=== PATIENT | female | born 2005 | race Hispanic/Latino ===

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

== ENCOUNTER 2025-01-27 21:02 | Emergency (ER) | payer BC ==
[~2025-01-27] VITALS: Ht 165.1 cm; Wt 54.4 kg
--- NOTE | 2025-01-27 21:27 | ERN ---
ED Note History of Present Illness Stated Complaint: VAGINAL BLEEDING Chief Complaint: Vaginal Bleeding Time Seen by MD: 21:06 Time Seen by Midlevel: 21:06 Dictation: The patient is a 19-year-old female with no significant past medical history who presents to the emergency department with complaints of lower abdominal pain onset yesterday and brown spotting onset today. Patient reports she is about [address] Zamarripa. G2 A1. Patient denies any fevers. Allergies: Coded Allergies: No Known Drug Allergies (Unverified Allergy, Unknown, 05/24/23) Past Medical History Past Medical History: No Pertinent History Surgical History: None LMP: October 15, 2024 : 2 Aborts: 1 RN Note Reviewed/Agreed w/PFSH: Yes Review of System Dictation Constitutional: Negative for fever,chills, and weight loss Eyes: Negative for injury, pain,redness, and discharge ENT: Negative for injury,pain or swelling Cardiovascular: Negative for chest pain, palpitations, and edema Respiratory: Negative for shortness of breath, cough, and wheezing, Abdomen/GI: Negative for nausea, vomiting, diarrhea, and constipation positive for abdominal pain Back: Negative for injury and pain : Negative for injurypossible for vaginal bleeding MS/Extremity: Negative for injury and deformity Skin: Negative for rash, and discoloration Neuro: Negative for headache, weakness, numbness, tingling, and seizure Psych: Negative for suicide ideation, homicidal ideation, and hallucinations Initial Vital Sign VS Vital Signs Date Time Temp Pulse Resp B/P (MAP) Pulse Ox O2 Delivery O2 Flow Rate FiO2 01/27/25 21:03 98.1 77 18 128/90 100 Room Air 01/27/25 22:18 0 21 Physical Exam Dictation Vital Signs reviewed General Appearance: Alert, oriented x 3, no acute distress, well developed, nourished. Head and Face: non-traumatic. Eyes: PERRL, pink conjunctivas, eyelid no trauma, anterior chamber with arcus senilis. Ears: Pinnas intact and no signs of trauma or erythema ear canals clear and no discharge TM no erythema Nose: No discharge, no bleeding. Oropharynx: Mouth normal, tongue pink. pharynx clear,no erythema, tonsils no exudates, no abscesses noted, mucous membrane moist Neck: Supple, non-tender, no thyromegaly, no masses, no JVD, no bruits Breast:Deferred Chest:No tenderness, no crepitus, no paradoxical movement, no retractions Lungs:Clear, well-ventilated, symmetric, no rales, no wheezing, no rhonchi, no stridor, good breath sounds bilaterally Heart: Regular rate, regular rhythm, no murmur, no gallops Vascular: no peripheral edema, Abdomen: Soft, positive bowel sounds, nondistended, no guarding, nontender, no rebound, no masses no hepatomegaly, no splenomegaly, no Neil's sign, no hernias. Rectal: Deferred Genital: Deferred Neurological: Normal speech, motor function intact, sensory function intact Musculoskeletal: Neck nontender, full range of motion, back nontender, full range of motion, Extremities: nontender, full range of motion Skin: Color pink, dry, no turgor, no rash, no lacerations, no abrasions, no contusions. Lymphatic: Deferred Results (Laboratory/Radiology) Laboratory/Radiology Laboratory Tests Test 01/27/25 21:34 01/27/25 22:03 White Blood Count 10.0 K/uL (4.8-10.8) Red Blood Count 3.57 MIL/uL (4.00-5.50) L Hemoglobin 11.0 g/dL (12.0-16.0) L Hematocrit 31.1 % (36-48) L Mean Corpuscular Volume 87.1 fL (80-100) Mean Corpuscular Hemoglobin 30.8 pg (27.0-33.0) Mean Corpuscular Hemoglobin Concent 35.4 g/dL (32.0-36.0) Red Cell Distribution Width 13.0 % (11.0-15.5) Platelet Count 283 K/uL (130-400) Mean Platelet Volume 10.1 fL (7.5-10.5) Immature Granulocyte % (Auto) 0.4 % (0-1) Neutrophils (%) (Auto) 75.5 % (40.0-77.0) Lymphocytes (%) (Auto) 19.1 % (21.0-51.0) L Monocytes (%) (Auto) 4.5 % (3.0-13.0) Eosinophils (%) (Auto) 0.2 % (0.0-8.0) Basophils (%) (Auto) 0.3 % (0.0-5.0) Neutrophils # (Auto) 7.6 K/uL (1.8-7.7) Lymphocytes # (Auto) 1.9 K/uL (1.0-4.8) Monocytes # (Auto) 0.5 K/uL (0.1-1.0) Eosinophils # (Auto) 0.02 K/uL (0.00-0.70) Basophils # (Auto) 0.03 K/uL (0.00-0.20) Absolute Immature Granulocyte (auto 0.04 K/uL (0-1) Nucleated Red Blood Cells 0.0 % (0.0-0.19) Sodium Level 137 mmol/L (136-145) Potassium Level 3.6 mmol/L (3.5-5.1) Chloride Level 103 mmol/L (101-111) Carbon Dioxide Level 26 mmol/L (21-32) Blood Urea Nitrogen 6 mg/dL (7-18) L Creatinine 0.5 mg/dL (0.5-1.0) Glomerular Filtration Rate Calc 138 mL/min (>90) Random Glucose 86 mg/dL (70-105) Total Calcium 8.8 mg/dL (8.5-10.1) Human Chorionic Gonadotropin, Quant 35032 mIU/mL (0-5) H Urine Color LIGHT-YELLOW (YELLOW) Urine Appearance CLEAR (CLEAR) Urine pH 6.5 (5.0-8.0) Urine Specific [place] 1.010 (1.001-1.031) Urine Protein NEGATIVE mg/dL (NEGATIVE) Urine Glucose (UA) NEGATIVE mg/dL (NEGATIVE) Urine Ketones 20 mg/dL (NEGATIVE) H Urine Occult Blood NEGATIVE (NEGATIVE) Urine Nitrate NEGATIVE (NEGATIVE) Urine Bilirubin NEGATIVE mg/dL (NEGATIVE) Urine Urobilinogen 0.2 mg/dL (0.2-1.0) Urine Leukocyte Esterase NEGATIVE Isidoro/uL Urine RBC 0-1 /HPF (0-1) Urine WBC 2-5 /HPF (0-1) H Urine Squamous Epithelial Cells RARE /HPF (0-2) Urine Bacteria RARE /HPF (None Seen) REASON: VAGINAL BLEEDING ORDERING PHYSICIAN: CHRISTINE ESPARZA PROCEDURE: OB >14 - US OB >14 WEEKS EXAMINATION: COMPLETE TRANSABDOMINAL OBSTETRIC ULTRASOUND. CLINICAL INDICATION: vaginal bleeding. COMPARISON: None provided. TECHNIQUE: Grayscale ultrasonography of lower abdomen and pelvis. FINDINGS: LMP: 10/15/2024 A single, live, intrauterine fetus is seen in breech presentation. Estimated date of delivery as per the ultrasound done today is 07/17/2025 corresponding to a gestational age of 15 weeks 4 days. The placenta is posterior, grade 0 maturity. The lower limit of posterior placenta is 1.7 cm away from cervix. No placenta previa. Cervix is closed, measures 2.5 cm. Heart rate is 145 beats per minute. weight is 120 +/-18 g. The parameters are as following: Biparietal diameter: 3.25 cm (EGA - 16 weeks, 1 day). Head circumference: 11.91 cm (EGA - 15 weeks, 6 days). Femoral length: 1.72 cm (EGA - 15 weeks, 0 days). Abdominal circumference: 9.13 cm (EGA - 15 weeks, 3 days). HC /AC ratio: 1.30 FL/AC ratio: 18.84 Cephalic index: 78%. Estimated gestational age: 15 Weeks 4 Days. EDC (by LMP): 07/22/2025 EDC (by measurement): 07/17/2025 parts including the four-chamber heart, spine, stomach, kidneys, urinary bladder, three-vessel umbilical cord, cord insertion, cisterna magna, lateral ventricles, choroid plexus and cerebellum appear normal. Amniotic fluid is normal for the period of gestation. The amniotic fluid index is: 10.5 cm. The umbilical cord is three-vesseled and is normal. IMPRESSION: Single live intrauterine with corresponding gestational age of 15 weeks and 4 days with breech presentation at the time of this scan and with no obvious anatomical abnormality. /[facility] Labs Reviewed?: Yes ED Course ED Course Orders Procedure Category Date Status Time Cbc With Differential LAB 01/27/25 Complete 21:17 Hcg,Quantitative LAB 01/27/25 Complete 21:17 Us Ob >14 Weeks US 01/27/25 Resulted 21:17 0.9%Nacl 1000ml (Ns PHA 01/27/25 Complete 1000ml) 21:30 Basic Metabolic Panel LAB 01/27/25 Complete 21:17 Acetaminophen 500mg PHA 01/27/25 Complete Tab (Tylenol 500mg T 21:30 Urinalysis Profile LAB 01/27/25 Complete 21:17 Type And Screen BBK 01/27/25 Complete 21:30 Current Medications Medications (Trade) Dose Ordered Sig/Naeem Route PRN Reason Start Time Stop Time Status Last Admin Dose Admin Acetaminophen (TYLenol 500MG TAB) 1,000 mg ONCE ONCE PO 01/27/25 21:30 01/27/25 21:31 DC 01/27/25 21:51 Sodium Chloride 1,000 ml @ 0 mls/hr ONCE ONCE IV 01/27/25 21:30 01/27/25 21:31 DC 01/27/25 22:06 Vital Signs Date Time Temp Pulse Resp B/P (MAP) Pulse Ox O2 Delivery O2 Flow Rate FiO2 01/27/25 22:18 98.2 76 18 122/72 98 Room Air* 0 21 01/27/25 21:03 98.1 77 18 128/90 100 Room Air Medical Decision Making MDM The patient is a 19-year-old female with no significant past medical history who presents to the emergency department with complaints of lower abdominal pain onset yesterday and brown spotting onset today. Patient reports she is about [address] Zamarripa. G2 A1. Patient denies any fevers. CBC showed no leukocytosis, mild normocytic anemia, chemistry showed no electrolyte imbalance, urinalysis unremarkable, ultrasound revealed a intrauterine of 15 weeks. heart rate of 145 On physical exam patient is in no acute distress, nontoxic appearance, stable vital signs. Patient with a only brown spotting, no active bleeding. Patient will be discharged to follow up with OBGYN. Differential diagnosis: During , UTI, subchorionic hemorrhage Need for hospitalization: Patient does not meet criteria for hospitalization. There are no social concerns with this patient. DX & DISP Disposition: Discharge Departure Impression: Primary Impression: 15 weeks gestation of Condition: Stable Additional Instructions: Please follow up with your OBGYN as soon as possible. If anything changes pl ease return to ER. FOLLOW-UP WITH PRIMARY CARE PROVIDER IN 1 TO 2 DAYS. OKAY TO CONTINUE HOME MEDICATIONS UNLESS OTHERWISE DISCUSSED DURING YOUR VISIT IN THE EMERGENCY ROOM TODAY. RETURN TO YOUR NEAREST EMERGENCY ROOM IF SYMPTOMS WORSEN OR IF THERE IS NO IMPROVEMENT. CALL 911 IF YOU NEED IMMEDIATE ASSISTANCE. TAKE TYLENOL [id number] NEEDED AND IF NO CONTRAINDICATIONS ARE PRESENT. INCREASE ORAL HYDRATION. A WOUND CULTURE OR URINE CULTURE WAS ORDERED HERE IN THE EMERGENCY ROOM DEPARTMENT PLEASE FOLLOW-UP WITH PRIMARY CARE PROVIDER AND ADVISE THEM TO GET REPEAT PORTS FROM OUR FACILITY. IF YOU HAD ANY SCOT WRAP/SPLINTS THAT WERE APPLIED HERE, PLEASE DO NOT REMOVE THEM UNTIL YOU SEE YOUR PRIMARY CARE OR SPECIALTY. Referrals: BECKY QUEZADA (PCP) Time of Disposition: 23:06 I have reviewed the case, and I agree with, Diagnosis and Plan CHRISTINE ESPARZA BUILDING CUSTODIAN Jan 27, 2025 21:27
[2025-01-27 21:40] LABS: IMMATURE GRANULOCYTE ABSOLUTE 0.04 K/uL (0-1); NUCLEATED RED BLOOD CELLS 0.0 % (0.0-0.19); PLATELET COUNT (AUTO) 283 K/uL (130-400); RED BLOOD CELL COUNT(AUTO) 3.57 MIL/uL (4.00-5.50); RED CELL DISTRIBUTION WIDTH 13.0 % (11.0-15.5); WHITE BLOOD COUNT (AUTO) 10.0 K/uL (4.8-10.8)
[2025-01-27 21:50] LABS: CREATININE 0.5 mg/dL (0.5-1.0); GLOMERULAR FILTR. RATE CALC 138.0 mL/min (>90); GLUCOSE,RANDOM 86.0 mg/dL (70-105); SODIUM SERUM 137.0 mmol/L (136-145); UREA NITROGEN, BLOOD 6.0 mg/dL (7-18)
[2025-01-27] MEDS: 0.9%NACL 1000ML 1,000 ML IV ONE (22:06)
[2025-01-27 22:15] LABS: APPEARANCE,URINE CLEAR (CLEAR); GLUCOSE, URINE (UA) NEGATIVE (NEGATIVE); LEUKOCYTE ESTERASE ,URINE NEGATIVE Leu/uL (NEGATIVE); NITRATE,URINE NEGATIVE (NEGATIVE); OCCULT BLOOD,URINE NEGATIVE (NEGATIVE)
[2025-01-27 22:16] LABS: HCG,QUANTITATIVE 42025.0 mIU/mL (0-5)
[2025-01-27 22:16] LABS: ADD UA MICROSCOPIC YES
[2025-01-27 22:17] LABS: SQUAMOUS EPITHELIAL CELL,UR RARE /HPF (0-2)
--- NOTE | 2025-01-27 22:43 | HMCIMG ---
EXAMINATION: COMPLETE TRANSABDOMINAL OBSTETRIC ULTRASOUND. CLINICAL INDICATION: vaginal bleeding. COMPARISON: None provided. TECHNIQUE: Grayscale ultrasonography of lower abdomen and pelvis. FINDINGS: LMP: 10/15/2024 A single, live, intrauterine fetus is seen in breech presentation. Estimated date of delivery as per the ultrasound done today is 07/17/2025 corresponding to a gestational age of 15 weeks 4 days. The placenta is posterior, grade 0 maturity. The lower limit of posterior placenta is 1.7 cm away from cervix. No placenta previa. Cervix is closed, measures 2.5 cm. Heart rate is 145 beats per minute. weight is 120 +/-18 g. The parameters are as following: Biparietal diameter: 3.25 cm (EGA - 16 weeks, 1 day). Head circumference: 11.91 cm (EGA - 15 weeks, 6 days). Femoral length: 1.72 cm (EGA - 15 weeks, 0 days). Abdominal circumference: 9.13 cm (EGA - 15 weeks, 3 days). HC /AC ratio: 1.30 FL/AC ratio: 18.84 Cephalic index: 78%. Estimated gestational age: 15 Weeks 4 Days. EDC (by LMP): 07/22/2025 EDC (by measurement): 07/17/2025 parts including the four-chamber heart, spine, stomach, kidneys, urinary bladder, three-vessel umbilical cord, cord insertion, cisterna magna, lateral ventricles, choroid plexus and cerebellum appear normal. Amniotic fluid is normal for the period of gestation. The amniotic fluid index is: 10.5 cm. The umbilical cord is three-vesseled and is normal. IMPRESSION: Single live intrauterine with corresponding gestational age of 15 weeks and 4 days with breech presentation at the time of this scan and with no obvious anatomical abnormality. /[place]
[2025-01-27 23:50] VITALS: BP 120/72; PULSE 72; RESP 18; TEMP 98.2; O2SAT 98
== END 2025-01-27 23:53 | disposition home or self-care (01) ==
LOC: EDH 21:02
DX: O26.892 Other specified pregnancy related conditions, second trimester (principal); R10.30 Lower abdominal pain, unspecified; R10.2 Pelvic and perineal pain; Z3A.15 15 weeks gestation of pregnancy
CPT/HCPCS: 99284; 96360; 76805; 96361; 80048; 84702; 85025; 86850; 86900; 86901; 81001; 36415; J7030